=== PATIENT | male | born 1990 | race Caucasian/White ===

== ENCOUNTER 2016-10-19 12:43 | Day surgery (SDC) | payer OTHER ==
[~2016-10-19] VITALS: Ht 177.8 cm; Wt 79.5 kg
--- NOTE | ~2016-10-19 | OP ---
PATIENT NAME: BLANCHE VAZQUEZ MEDICAL RECORD: [id number] :88 LOCATION:D.OPS ADMISSION DATE: SURGEON: MARICARMEN MAN MD DATE OF OPERATION: 10/19/2016 PROCEDURE: This is an EGD with balloon dilatation and EGD with biopsy. TOOL AND FIXTURE REPAIRER: Maricarmen Man M.D. SCOPE: Olympus video gastroscope and a CRE Microvasive balloon from 45-57 [place]. MEDICATIONS: TIVA anesthesia. The patient received 400 mg of propofol for this procedure, O2 at 4 liters. INDICATION FOR THE PROCEDURE: Gastroesophageal reflux disease as well as dysphagia. FINDINGS: Informed consent was given. The patient was made comfortable with the above medications. After reaching an adequate level of sedation by slow IV push, the patient was placed on his left side. The endoscope was then advanced under direct visualization through the posterior pharyngeal area and advanced to the distal esophagus. A thick Schatzki's ring was appreciated in this area and after the inspection part of the EGD was completed, a CRE microvasive balloon was placed in this area elevated from 45-57 [place], held in place for 1 minute without complication. Biopsies were then taken of the Schatzki's ring. The patient also had the presence of a very small sliding hiatal hernia seen both on direct and retroflex views. On entering the stomach, only minimal inflammation was noted. A histopathology RYLEE biopsy was taken at the antral area. The duodenal bulb to the second portion was normal with bile present. IMPRESSION: 1. Distal esophageal Schatzki's ring dilated from 45-57 [place] without complication. 2. Very mild distal esophagitis, biopsied. 3. Mild gastritis. Biopsy taken at the antral area looking for the presence of Helicobacter pylori. 4. Normal duodenum. PLAN: 1. The patient should continue his omeprazole at 20 mg p.o. every day. 2. Caution with anti-inflammatory drugs. 3. Follow reflux precautions stringently, both dietary and positional and caution with chocolate, tomato, citrus, caffeine, fatty foods, peppermint. Caution with alcohol and no tobacco. TRANSINT:[id number] Voice Confirmation ID: [id number] DOCUMENT ID: [id number] OPERATIVE REPORT [id number] VAZQUEZBLANCHE HARRIS ELISA MARICARMEN MAN MD CC: JORGE SHI MD [id number] DICTATION DATE: 10/19/[address] SECURITY: 10/19/16 2[address] [facility] 10/19/16 [id number] [place] [address]
[2016-10-19 14:48] VITALS: BP 110/70; Ht 177.8 cm; Wt 79.5 kg
[2016-10-19] MEDS ORDERED: OMEPRAZOLE20 M1 PO (14:53)
--- NOTE | 2016-10-19 16:45 | NUR ---
DILATED ESOPHAGUS FROM 45 TO 50 PALAUAN.
== END 2016-10-19 17:40 | disposition home or self-care (01) ==
LOC: D.OPS 12:43
DX: R13.10 Dysphagia, unspecified (principal); K21.9 Gastro-esophageal reflux disease without esophagitis; K22.2 Esophageal obstruction; K20.9 Esophagitis, unspecified; K29.70 Gastritis, unspecified, without bleeding